=== PATIENT | female | born 1955 | race Caucasian/White ===

== ENCOUNTER 2022-02-02 13:24 | Emergency (ER) | payer MEDICARE, OTHER ==
[2022-02-02] MEDS ORDERED: Cephalexin 250 MG Cap ONE (13:45)
[2022-02-02] MEDS: Diphtheria,Pertussis(Acell),Tetanus Vaccine 0.5 ML SDV IM ONE (13:49)
== END 2022-02-02 14:00 | disposition home or self-care (01) ==
LOC: LB.ED 13:24
DX: S60.451A Superficial foreign body of left index finger, initial encounter (principal); Z88.0 Allergy status to penicillin; Z23 Encounter for immunization; W45.8XXA Other foreign body or object entering through skin, initial encounter
CPT/HCPCS: 90471; 90715; 99281; 99283-25; A9270-GY